=== PATIENT | female | born 1965 | race Caucasian/White ===

== ENCOUNTER → 2021-05-07 | Outpatient (CLI) | payer BC ==
[2021-05-07 13:31] VITALS: BP 138/80; PULSE 59; RESP 18; TEMP 97.6
--- NOTE | 2021-05-07 14:12 | P.GSHP ---
History of Present Illness H&P Date: 05/07/21 Chief Complaint: invasive ductal cancer of the right breast Desirae is a 55 year old white female seen in consultation for DR. Simmons regarding a biopsy-proven invasive ductal carcinoma in her right breast. She underwent a bilateral mammogram and ultrasound on April 092020. This revealed a lesion in the right breast at the 10 o'clock position. The lesion was 1.6 x 0.9 cm in size. An ultrasound core biopsy was performed on which revealed invasive ductal carcinoma. This is ER positive OR negative grade 2 HER-2 status pending. The patient did not note any lumps masses or nodules of concern in either breast. She is not complaining of any nipple discharge or skin changes. She has not had any prior surgery in her breast. She's not complaining of any trauma or infection in the breast. Caffeine: 5 cups coffee/day nicotine: none chocolate: occasional hormones: none BCP: 5 years, stopped many years ago; tubal Family History: mother: skin cancer Hormonal History: Menarche: 13 , breast fed: yes; first born at 24 menopause: 43 hormones: none Surgical History: hernia umbilical appy Medical History; none Social History: nicotine: none alcohol: occasional drugs: none - Constitutional Comment: hot flashes - EENT Eyes: denies blurred vision, denies pain Ears: deny: decreased hearing, tinnitus Ears, nose, mouth and throat: Denies headache, Denies sore throat - Breasts Breasts: bilateral: as per HPI - Cardiovascular Cardiovascular: Denies chest pain, Denies shortness of breath - Respiratory Respiratory: Denies cough, Denies 7 - Gastrointestinal Gastrointestinal: Reports constipation, Denies abdominal pain, Denies diarrhea, Denies nausea, Denies vomiting - Genitourinary (Female) Genitourinary: Denies dysuria, Denies hematuria - Menstruation Menstruation: Reports postmenopausal - Musculoskeletal Musculoskeletal: Denies myalgias - Integumentary Integumentary: Denies pruritus, Denies rash - Neurological Neurological: Denies numbness, Denies weakness - Psychiatric Psychiatric: Denies anxiety, Denies depression - Endocrine Endocrine: Denies fatigue, Denies weight change - Hematologic/Lymphatic Hematologic/Lymphatic: Reports as per HPI - Allergic/Immunologic Allergic/Immunologic: Reports as per HPI Past Medical History Past Medical History: GERD/Reflux History of Any Multi-Drug Resistant Organisms: None Reported Past Surgical History: Hernia Repair Additional Past Surgical History / Comment(s): right breast biopsy 04/19/21- pending pathology Past Anesthesia/Blood Transfusion Reactions: No Reported Reaction Past Psychological History: No Psychological Hx Reported Smoking Status: Never smoker Medications and Allergies Home Medications Medication Instructions Recorded Confirmed Type Omeprazole 40 mg PO DAILY 05/07/21 05/07/21 History Allergies Allergy/AdvReac Type Severity Reaction Status Date / Time No Known Allergies Allergy Verified 05/07/21 13:24 Surgical - Exam Vital Signs Temp Pulse Resp BP 97.6 F 59 L 18 138/80 05/07/21 13:24 05/07/21 13:24 05/07/21 13:24 05/07/21 13:24 BMI 32.5 - General no distress - Eyes normal ocular movement - Neck trachea midline - Respiratory normal respiratory effort, clear to auscultation - Cardiovascular Rhythm: regular Heart Sounds: normal: S1, S2 - Abdomen Abdomen: soft, non tender, no guarding, no rigid, no rebound - Integumentary normal turgor - Neurologic no disoriented, no combative - Musculoskeletal normal gait, normal posture - Psychiatric oriented to time, oriented to person, oriented to place, speech is normal, memory intact Breast Exam: BRA: 36C inspection: Bilateral grade 2 ptosis; fungal infection under each breast Palpation: Right breast: Ecchymosis related to recent core biopsy, fullness 9 o'clock position approximately 1.5 cm x 1 cm, no other dominant masses or nodules of concern, fungal infection under both breast Right axilla: No adenopathy of concern Left breast: Multi-positional exam fibrocystic changes no dominant masses or nodules of concern Left axilla: No adenopathy of concern Results Mammogram and ultrasound results reviewed Pathology results reviewed Assessment and Plan Assessment: Impression: 1. Right breast invasive ductal carcinoma grade 2 T1 N0 M0 ER positive OR- Her2? 2. Upper cystic breast changes Plan: 1. Presentation of case at tumor board 2. Probable needle localization lumpectomy, possible mastopexy incision, hyperplastic tissue transfer, sentinel node injection, sentinel node biopsy, right breast Cc: Dr. Simmons
== END ==
LOC: WWCWWP 12:52
PROVIDERS: ATTEND Surgery
DX: C50.911 Malignant neoplasm of unspecified site of right female breast (principal); N60.09 Solitary cyst of unspecified breast; K21.9 Gastro-esophageal reflux disease without esophagitis; Z17.0 Estrogen receptor positive status [ER+]; Z79.899 Other long term (current) drug therapy

== ENCOUNTER → 2021-06-04 | Outpatient (CLI) | payer BC ==
[2021-06-04 16:17] VITALS: BP 143/88; PULSE 57; RESP 17; TEMP 97.9
--- NOTE | 2021-06-04 16:52 | P.PN ---
Subjective Progress Note Date: 06/04/21 Principal diagnosis: invasive ductal right breast cancer History of Present Illness H&P Date: 05/07/21 Chief Complaint: invasive ductal cancer of the right breast Desirae is a 55 year old white female seen in consultation for DR. Johnston regarding a biopsy-proven invasive ductal carcinoma in her right breast. She underwent a bilateral mammogram and ultrasound on April 092020. This revealed a lesion in the right breast at the 10 o'clock position. The lesion was 1.6 x 0.9 cm in size. An ultrasound core biopsy was performed on which revealed invasive ductal carcinoma. This is ER positive AR negative grade 2 HER-2 status pending. The patient did not note any lumps masses or nodules of concern in either breast. She is not complaining of any nipple discharge or skin changes. She has not had any prior surgery in her breast. She's not complaining of any trauma or infection in the breast. Her case was presented at tumor board on 05-18-21. Caffeine: 5 cups coffee/day nicotine: none chocolate: occasional hormones: none BCP: 5 years, stopped many years ago; tubal Family History: mother: skin cancer Hormonal History: Menarche: 13 , breast fed: yes; first born at 24 menopause: 43 hormones: none Surgical History: hernia umbilical appy Medical History; none Social History: nicotine: none alcohol: occasional drugs: none - Constitutional Comment: hot flashes - EENT Eyes: denies blurred vision, denies pain Ears: deny: decreased hearing, tinnitus Ears, nose, mouth and throat: Denies headache, Denies sore throat - Breasts Breasts: bilateral: as per HPI - Cardiovascular Cardiovascular: Denies chest pain, Denies shortness of breath - Respiratory Respiratory: Denies cough - Gastrointestinal Gastrointestinal: Reports constipation, Denies abdominal pain, Denies diarrhea, Denies nausea, Denies vomiting - Genitourinary (Female) Genitourinary: Denies dysuria, Denies hematuria - Menstruation Menstruation: Reports postmenopausal - Musculoskeletal Musculoskeletal: Denies myalgias - Integumentary Integumentary: Denies pruritus, Denies rash - Neurological Neurological: Denies numbness, Denies weakness - Psychiatric Psychiatric: Denies anxiety, Denies depression - Endocrine Endocrine: Denies fatigue, Denies weight change - Hematologic/Lymphatic Hematologic/Lymphatic: Reports as per HPI - Allergic/Immunologic Allergic/Immunologic: Reports as per HPI Objective - Vital Signs Vital signs: Vital Signs Temp 97.9 F 06/04/21 16:14 Pulse 57 L 06/04/21 16:14 Resp 17 06/04/21 16:14 BP 143/88 06/04/21 16:14 Pulse Ox 100 06/04/21 16:14 Intake & Output 06/03/21 06/04/21 06/04/21 18:59 06:59 18:59 Weight 95.254 kg - Exam BMI: 31 - Constitutional General appearance: Present: cooperative - EENT Eyes: Present: EOMI ENT: Present: hearing grossly normal - Neck Neck: Present: normal ROM - Respiratory Respiratory: bilateral: CTA - Cardiovascular Rhythm: regular Heart sounds: normal: S1, S2 - Gastrointestinal General gastrointestinal: Present: soft - Integumentary Integumentary: Present: normal turgor - Musculoskeletal Musculoskeletal: Present: gait normal - Psychiatric Psychiatric: Present: A&O x's 3, appropriate affect, intact judgment & insight - Additional findings Additional findings: Breast Exam: BRA: 36C inspection: bilateral grade 2 ptosis palpation: Right breast: Multi-positional exam fibrocystic changes, increased fullness upper-outer quadrant area at approximately 9:00 Right axilla: No adenopathy of concern Left breast: Multi-positional exam fibrocystic changes no dominant masses or nodules of concern Left axilla: No adenopathy of concern Assessment and Plan Assessment: Impression: 1. invasive ductal right breast cancer; T1 N0 M0 ER positive AR negative HER-2 negative G2 Plan: Right breast needle localization lumpectomy, probable donut mastopexy, right axillary sentinel node injection, sentinel node biopsy, possible axillary node dissection Risk benefits of the procedures were discussed with the patient. Surgical procedure of lumpectomy versus mastectomy were discussed with the patient. The patient would prefer to have lumpectomy. Additionally she would prefer to have this done via mastopexy approach if possible. Her case is going to be presented at tumor board. Risk of lumpectomy include but are not limited to bleeding, infection, reaction to the anesthetic. If margins were to be positive then further resection would be needed. We have discussed sentinel node biopsy and possible axillary node dissection. She understands that if the radiotracer does not travel or may be necessary for her to have injection of blue dye. She understands risks include but are not limited to bleeding, infection, reaction to the anesthetic. Possible injury to the thoracodorsal and long thoracic nerve were discussed. She will most likely seal lymphedema specialist prior to the procedure. CC: Dr. Johnston
== END ==
LOC: WWCWWP 16:04
PROVIDERS: ATTEND Surgery
DX: C50.911 Malignant neoplasm of unspecified site of right female breast (principal); Z17.0 Estrogen receptor positive status [ER+]

== ENCOUNTER 2021-06-08 10:41 | Day surgery (SDC) | payer BC ==
[2021-06-04 12:56] VITALS: BMI 31.0
[~2021-06-08 10:41] MED LIST: DEXAMETHASONE SOD PHOSPHATE 4 MG/ML 1 ML VIAL IV ONE; HEPARIN SODIUM,PORCINE/PF 5,000 UNIT/0.5 ML SYRINGE SQ PRN; LACTATED RINGERS 1,000 ML IV SCH; ONDANSETRON 4 MG/2 ML VIAL IVP ONE; Pre Op ABX Message 1 EACH MISC MISCELLANE ONE
[2021-06-08] MEDS ORDERED: ALPRAZolam 0.25 MG TAB ONE (11:16)
[2021-06-08] MEDS ORDERED: ALPRAZolam 0.25 MG TAB PO ONE (11:18)
[2021-06-08 12:09] LABS: Basophils % (A) 0 %; Eosinophils % (A) 1 %; HCT 42.1 % (34.0-46.0); HGB 14.4 gm/dL (11.4-16.0); Lymphocytes # (A) 1.5 k/uL (1.0-4.8); Lymphocytes % (A) 29 %; MCH 30.5 pg (25.0-35.0); MCHC 34.3 g/dL (31.0-37.0); Mean Platelet Volume 7.4; Monocytes # (A) 0.4 k/uL (0-1.0); Monocytes % (A) 8 %; Neutrophils % (A) 59 %; Platelet Count 213 k/uL (150-450); RBC 4.74 m/uL (3.80-5.40); RDW 12.4 % (11.5-15.5)
[2021-06-08 12:21] LABS: Potassium 4.3 mmol/L (3.5-5.1)
[2021-06-08] MEDS ORDERED: LIDOCAINE 1%-EPI 1:100,000 20 ML VIAL SQ ONE (12:25)
[2021-06-08] MEDS ORDERED: LIDOCAINE 1% INJ 10MG/ML (20 ML MDV) SQ ONE (12:25)
--- NOTE | 2021-06-08 13:05 | NM ---
EXAMINATION TYPE: NM sentinel node injection DATE OF EXAM: 06/08/2021 COMPARISON: NONE HISTORY: Right-sided breast cancer TECHNIQUE AND FINDINGS: The procedure of sentinel lymph node injection was explained to the patient. The benefits, alternatives, and risks were discussed. An informed consent was then obtained. Overlying skin is cleaned with sterile alcohol. Following this, 495 uCi Tc99m Tilmanocept was inject ed in the upper outer aspect of the right nipple intradermally. The patient tolerated the procedure well without any immediate complication. The patient was kept in the radiology department for short stay after the procedure and then taken to surgery for surgical p rocedure what is presumed intraoperative gamma probe will be used for sentinel lymph node detection. IMPRESSION: Right breast radiotracer injection for sentinel node localization as above.
[2021-06-08] MEDS ORDERED: LACTATED RINGERS 1,000 ML IV ONE (13:13)
--- NOTE | 2021-06-08 13:31 | P.NAPBC ---
NAPBC Queries - NAPBC Queries Was patient's case review presented at [facility] tumor board? If no, comment.: Yes Was patient's pathology reviewed at [facility]? If no, comment.: Yes Was breast conservation surgery offered? If no, comment.: Yes Was sentinel node biopsy offered? If no, comment.: Yes Was diagnosis confirmed by percutaneous core biopsy? If no, comment.: Yes Is patient mastectomy patient?: No Was a preop referral to reconstructive surgeon offered?: No Clinical Stage: stage I [id number]
[2021-06-08] MEDS ORDERED: HYDROmorphone (PF) 1 MG/ML ONE (14:05)
[2021-06-08] MEDS ORDERED: MIDAZOLAM 2 MG/2 ML VIAL ONE (14:05)
[2021-06-08] MEDS ORDERED: SUCCINYLCHOLINE CHLORIDE VIAL 200 MG/10 ML VIAL IV ONE (14:05)
[2021-06-08] MEDS ORDERED: PROPOFOL 10 MG/ML 20 ML VIAL IV ONE (14:05)
[2021-06-08] MEDS ORDERED: LIDOCAINE 1% INJ 10MG/ML (20 ML MDV) ONE (14:05)
[2021-06-08] MEDS ORDERED: fentaNYL (PF) 50 MCG/ML 2 ML AMP ONE (14:05)
[2021-06-08] MEDS ORDERED: LIDOCAINE (PF) 10 MG/ML 2 ML VIAL SQ ONE (14:43)
--- NOTE | 2021-06-08 15:50 | USB ---
EXAM: Needle localization with wire placement. CLINICAL HISTORY: Newly diagnosed biopsy-proven cancer right breast TECHNIQUE: Needle localization with wire placement and surgical excision of area of concern in the right breast. COMPARISON: Prior outside ultrasound and mammogram April 19, 2021 FINDINGS: The procedure of needle localization with wire placement and than surgical excision was explained to the patient. Benefits, alternatives, and risks were discussed. An informed consent was then obtained. Lesion well identified and samples under ultrasound. Ultrasound guidance for localization is thus performed. Preprocedure ultrasound redemonstrates near 1.2 cm irregular hypoechoic lesion 10:00 position right breast. The overlying skin was prepped and draped in usual sterile fashion. Lidocaine is used as anesthetic into the skin and subcutaneous tissue. Lidocaine with epinephrine is used into the deeper tissue up to the level of area of concern. A 5 cm needle was used. It was placed via ultrasound guidance. At this point, wire was placed and the needle was withdrawn. The wire was fixed to patient's skin. Diagnostic post procedure mammogram for surgeon is performed as requested. Images were marked for surgeon. Wire appears satisfactory in position relative to targeted lesion. The patient tolerated the procedure well without any immediate complication. The patient was kept in the radiology department for short stay after the procedure and then taken to surgery for surgical excision. Targeted lesion and biopsy clip and wire are identified in specimen mammogram. The patient was kept in hospital for short stay after the procedure and then discharged home in stable condition. IMPRESSION: Successful, uncomplicated needle localization with wire placement and surgical excision of targeted lesion and biopsy clip in the right breast, full pathology results to follow. Pathology Results: Malignant A. RIGHT SENTINEL LYMPH NODE, EXCISION: Two sentinel lymph nodes, each negative for metastatic carcinoma. CK7 and FRANCIS stains, both performed with appropriate controls on blocks A1 and A2, each negative for metastatic carcinoma. B. RIGHT AXILLARY LYMPH NODE, EXCISION: One axillary lymph node positive for focus of micrometastatic carcinoma (see note). C. RIGHT BREAST, LUMPECTOMY: Invasive ductal carcinoma, Grade 2, with intermediate to high grade DCIS with focal comedonecrosis (see Surgical Pathology Cancer Case Summary and comment). Positive for lymphovascular invasion and focal perineural invasion. Anterior margin positive for invasive carcinoma, near area of anterior/inferior margin junction. All other margins negative for invasive carcinoma. All margins negative for DCIS. Closest margin to DCIS: DCIS measures 4 mm from closest anterior margin. D. BREAST, NEW POSTERIOR MARGIN, EXCISION: Benign breast tissue. New posterior margin negative for malignancy. E. RIGHT BREAST, NEW LATERAL MARGIN, EXCISION: Benign breast tissue. New lateral margin negative for malignancy. F. BREAST, NEW MEDIAL MARGIN, EXCISION: Benign breast tissue. New medial margin negative for malignancy. G. BREAST, NEW SUPERIOR MARGIN, EXCISION: Benign breast tissue, new superior margin negative for malignancy. H. BREAST, NEW INFERIOR MARGIN, EXCISION: Benign breast tissue. New inferior margin negative for malignancy. I. BREAST, NEW ANTERIOR MARGIN, EXCISION: 2 mm focus of invasive ductal carcinoma present, Grade 2 (see Surgical Pathology Cancer Case Summary and comment). Invasive carcinoma present 1 mm from closest new anterior margin. New anterior margin negative for carcinoma. Recommendation Surgical consult of the right breast. ANTWAND
--- NOTE | 2021-06-08 16:37 | P.OP ---
Date of Procedure: 06/08/21 Preoperative Diagnosis: right breast invasive ductal carcinoma, stage I Postoperative Diagnosis: Same Procedure(s) Performed: Right sentinel node biopsy, right deltoid mastopexy, right needle localization lumpectomy, right ankle plastic tissue transfer deformity 4 x 4 for 16 cm, inferior periareolar 4 x 2 through 12 cm, and superior 4 x 2 4 8 cm. Total 36 cm Anesthesia: RENEA Surgeon: Jasmyn Cortes Estimated Blood Loss (ml): 15 IV fluids (ml): 600 Pathology: other (Right sentinel node, right breast tissue) Condition: stable Disposition: same day Indications for Procedure: Biopsy-proven right breast invasive ductal carcinoma Operative Findings: Dense breast tissue Description of Procedure: Desirae is a 55-year-old white female diagnosed with a right breast invasive ductal carcinoma. After workup and evaluation she has decided on a lumpectomy with mastopexy incision of possible. Risks and benefits were discussed with the patient she understood and wished to proceed. The patient initially was seen in the radiology department. Localization of the cancer was performed. Additionally radioactive tracer was injected along the periareolar region. The patient was brought to the operative suite. Follow remains induction of anesthesia the neoprobe was used to interrogate the axilla. Radioactivity was noted in the axilla. The right breast and axilla were then prepped and draped in a sterile fashion. This area was approached initially. Using the neoprobe for guidance incision was made over the area of greatest radioactivity. A radioactive lymph node was identified this was removed using sharp dissection. The 10 second count was 9952. An additional palpable lymph node was identified in the removed as well. This was not radioactive. The 10 second background radioactive count was 14. After assured that hemostasis was attained the deep tissues were closed using Vicryl suture. The subcutaneous tissue was closed using 4-0 Vicryl suture followed by 4-0 Monocryl closing of the skin. The area of the breast was then approached. Markings had previously been drawn for a donut mastopexy incision. The anterior central tissue was de- epithelialized. The area of the breast parenchyma was then entered in the lateral aspect of the incision. Dissection was performed down to the localizing wire. Wide excision was performed. The cavity of excision was 4 cm x 4 cm. The specimen was removed and painted. It was then sent to radiology for confirmation that the area of concern was removed was obtained. Following this additional anterior lateral superior and inferior margins were obtained. Posterior margin was obtained as well and this was dissected onto the pectoralis muscle. Anteriorly dissection was directly underneath the skin. After assured that hemostasis was attained the inferior periareolar was mobilized. This was 4 cm x 3 cm in size. The superior polar was likewise mobilized which was 4 cm x 2 cm in size. The wound was irrigated and after assured that hemostasis was attained Surgicel and pyriform was placed. The areas of tissue were brought together to close the deformity defect. They were secured using 3-0 Vicryl suture. Following this a Bushnell closure of the circumareolar incision was performed using Monocryl suture. A 3-0 Vicryl sutures were placed for reinforcement of the mastopexy. Skin sutures of 4-0 nylon were placed. Steri-Strips were applied in the axilla. Patient tolerated the procedure in stable condition. All instrument and sponge counts were correct at the end of the case.
--- NOTE | 2021-06-08 16:39 | P.DS ---
Providers Attending physician: Jasmyn Cortes Primary care physician: Sandi Simmons MD Plan - Discharge Summary Discharge Rx Participant: Yes New Discharge Prescriptions: No Action Omeprazole 40 mg PO DAILY Discharge Medication List Omeprazole 40 mg PO DAILY 05/07/21 [History] Follow up Appointment(s)/Referral(s): Jasmyn Cortes MD [STAFF PHYSICIAN] - 06/16/21 1:00 pm Activity/Diet/Wound Care/Special Instructions: wear bra at all times unless in shower may shower after [address] or if taking narcotic pain medicine Discharge Disposition: HOME SELF-CARE
[2021-06-08 17:21] VITALS: TEMP 97
[2021-06-08] MEDS: HYDROmorphone 0.5 MG/0.5 ML SYRINGE IVP PRN ×2 (17:22→17:29)
[2021-06-08 18:16] VITALS: BP 130/86; PULSE 67; RESP 20
== END 2021-06-08 18:30 | disposition home or self-care (01) ==
LOC: OR 10:41
PROVIDERS: ATTEND Surgery
DX: C50.411 Malignant neoplasm of upper-outer quadrant of right female breast (principal)
CPT/HCPCS: 19302; 88305; 80051; 85025; 88342; 88307; 88341; 77065; 76098; 19285; 38792; C1819; A9520; J2250; J0330; J2001 ×2; J1100; J0690; J2405; J3010; J1170 ×2; J2704; J1644

== ENCOUNTER → 2021-06-16 | Outpatient (CLI) | payer BC ==
[2021-06-16 15:06] VITALS: BP 129/85; PULSE 70; RESP 18; TEMP 97.8
--- NOTE | 2021-06-16 15:25 | P.PN ---
Progress Note - Text Progress Note Date: 06/16/21 Desirae is a 55-year-old white female status post right breast lumpectomy and sentinel node biopsy on 3121. Postoperatively she has done well. Pathology revealed a 2.5 x 2.4 cm invasive ductal carcinoma with margins negative. One lymph node had micrometastatic disease. Postoperatively she has done well. lungs: clear heart: RRR incision: Pain and dry Impression: stage I right breast invasive ductal cancer Plan: Follow-up here in 1 week for suture removal Follow-up radiation oncology Follow-up medical oncology CC: Dr. Johnston
== END ==
LOC: WWCWWP 14:54
PROVIDERS: ATTEND Surgery
DX: C50.911 Malignant neoplasm of unspecified site of right female breast (principal); Z98.890 Other specified postprocedural states

== ENCOUNTER → 2021-07-02 | Outpatient (CLI) | payer BC ==
[2021-07-02 08:31] VITALS: BP 142/84; PULSE 53; RESP 18; TEMP 97.9
--- NOTE | 2021-07-02 08:51 | P.PN ---
Progress Note - Text Progress Note Date: 07/02/21 Desirae is a 55-year-old white female status post right breast lumpectomy and sentinel node biopsy on 3121. Postoperatively she has done well. Pathology revealed a 2.5 x 2.4 cm invasive ductal carcinoma with margins negative. One lymph node had micrometastatic disease. Postoperatively she has done well. She has seen medical and radiation oncology. Secondary to the micrometastatic disease in the lymph node she has been recommended to undergo chemotherapy. Additionally she will undergo radiation therapy. lungs: clear heart: RRR incision: Axilla posterior portion approximately 5 mm opening it appears that she had a stitch abscess at this site, periareolar incision clean and dry Impression: stage I right breast invasive ductal cancer Patient is going to have chemotherapy, following up August 13 with medical oncology for 4 treatments three weeks apart patient will have radiation therapy Plan: Follow-up here in 2 week for suture removal Follow-up radiation oncology Follow-up medical oncology CC: Dr. Johnston
== END ==
LOC: WWCWWP 08:10
PROVIDERS: ATTEND Surgery
DX: C50.811 Malignant neoplasm of overlapping sites of right female breast (principal); Z98.890 Other specified postprocedural states

== ENCOUNTER 2021-07-23 09:10 | Day surgery (SDC) | payer BC ==
[2021-07-21 10:41] VITALS: BMI 34.1
--- NOTE | 2021-07-23 06:31 | P.GSHP ---
History of Present Illness H&P Date: 07/23/21 CHIEF COMPLAINT: Breast cancer HISTORY OF PRESENT ILLNESS: The patient is a 37-year-old female diagnosed with breast cancer. She needs a Mediport placement for chemotherapy. PAST MEDICAL HISTORY: See list and reviewed PAST SURGICAL HISTORY: See list and reviewed CURRENT MEDICATIONS: See list and reviewed ALLERGIES: See list and reviewed SOCIAL HISTORY: See list and reviewed FAMILY HISTORY: See list and reviewed REVIEW OF ORGAN SYSTEMS: CONSTITUTIONAL: No fevers or chills RESPIRATORY: No pneumonia. No dyspnea on exertion. CARDIOVASCULAR: No recent chest pain. No history of blood clots PHYSICAL EXAMINATION: Vital signs: Stable GENERAL: Well developed and in no acute distress. Pleasant. HEENT: No sclera icterus. Extraocular movements grossly intact. Moist buccal mucosa. Head is atraumatic, normocephalic. Hears conversational speech. No nasal drainage. NECK: Supple without lymphadenopathy. No JV distention. CHEST: Non-labored respirations and equal bilateral excursions. CARDIOVASCULAR: Regular rate and rhythm. Palpable 2+ radial pulses. ABDOMEN: Nontender. MUSCULOSKELETAL: No clubbing, cyanosis or edema. NEUROLOGIC: No focal or lateralizing signs. PSYCH: Appropriate affect. Alert and oriented to person, place and time. ASSESSMENT: 1. Breast cancer 2. Need for chemotherapeutic access. PLAN: 1. Port-A-Cath placement for chemotherapy access Past Medical History Past Medical History: Cancer, GERD/Reflux Additional Past Medical History / Comment(s): NEW DX RT BREAST CANCER History of Any Multi-Drug Resistant Organisms: None Reported Past Surgical History: Breast Surgery, Hernia Repair Additional Past Surgical History / Comment(s): right breast biopsy, rt breast lumpectomy Past Anesthesia/Blood Transfusion Reactions: No Reported Reaction Smoking Status: Never smoker - Past Family History Mother Family Medical History: No Reported History Medications and Allergies Home Medications Medication Instructions Recorded Confirmed Type Omeprazole 40 mg PO DAILY 05/07/21 07/21/21 History Allergies Allergy/AdvReac Type Severity Reaction Status Date / Time No Known Allergies Allergy Verified 07/21/21 10:36
[~2021-07-23 09:10] MED LIST changes: +ACETAMINOPHEN TAB 500 MG TAB PO PRN; +GABAPENTIN 300 MG CAP PO PRN; -HEPARIN SODIUM,PORCINE/PF 5,000 UNIT/0.5 ML SYRINGE SQ PRN; +HYDROmorphone 0.5 MG/0.5 ML SYRINGE IVP PRN; +MIDAZOLAM 2 MG/2 ML VIAL IV PRN; +SCOPOLAMINE 1 MG/72 HR PATCH TRANSDERM ONE
[2021-07-23] MEDS ORDERED: MIDAZOLAM 2 MG/2 ML VIAL ONE (10:09)
[2021-07-23] MEDS ORDERED: fentaNYL (PF) 50 MCG/ML 2 ML AMP ONE (10:09)
[2021-07-23] MEDS ORDERED: LIDOCAINE 1% INJ 10MG/ML (20 ML MDV) ONE (10:09)
[2021-07-23] MEDS ORDERED: PROPOFOL 10 MG/ML 20 ML VIAL IV ONE (10:09)
[2021-07-23] MEDS ORDERED: BUPIVACAINE (PF) 0.25% 30 ML VIAL SQ ONE ×2 (10:42→10:48)
[2021-07-23] MEDS ORDERED: SODIUM CHLORIDE 0.9% 500 ML 500 ML with HEPARIN SODIUM,PORCINE 5,000 UNIT IV ONE ×2 (10:45)
[2021-07-23 11:19] VITALS: TEMP 97.5
--- NOTE | 2021-07-23 11:29 | P.OP ---
Date of Procedure: 07/23/21 Description of Procedure: SURGEON: MARCELLE CRUZ MD FLAME ANNEALING MACHINE SETTER: None. PREOPERATIVE DIAGNOSES: 1. Breast cancer, right 2. Need for chemotherapeutic access. 3. Obesity due to excess calories, BMI 33.7 4. Gastroesophageal reflux disease POSTOPERATIVE DIAGNOSES: 1. Breast cancer, right 2. Need for chemotherapeutic access. 3. Obesity due to excess calories, BMI 33.7 4. Gastroesophageal reflux disease PROCEDURES PERFORMED: 1. Ultrasound guided central venous access of the right internal jugular venous vein. 2. Fluoroscopic guidance for central venous access right internal jugular vein less 1 seconds. 3. Placement of right internal jugular power port 6 [place] by [employer] X[employer] Plus Port ANESTHESIA: IV sedation with local. ESTIMATED BLOOD LOSS: 5 mL. SPECIMENS REMOVED: None. COMPLICATIONS: None. FINDINGS: 1. No thrombus encountered along the right carotid artery or internal jugular vein. 2. Access of the right internal jugular vein under ultrasound guidance. 3. Fluoroscopy of 1 seconds. INDICATIONS: The patient is a 55-year-old female recently diagnosed with breast cancer. She presents for chemotherapeutic access. Benefits and risks of surgical intervention were described including bleeding, infection, mechanical problems with his port. Informed consent was obtained. DESCRIPTION OR PROCEDURE: Patient was brought into the operating room, laid in supine position. After adequate IV sedation, the chest and right neck were prepped and draped in a standard sterile fashion including the shoulder with ChloraPrep. Timeout protocol was confirmed with the surgical team regarding the patient's name, procedure to be performed including preoperative medications for which she received IV antibiotics. Bilateral SCDs were placed. An ultrasound was used to capture views of the right internal jugular vein including right carotid artery, which was patent and without thrombus along its course. The right IJ was then localized using anesthetic for the skin. A 16 [place] needle was used to access the IJ. A guidewire was advanced into the IJ with dark nonpulsatile venous blood. Two fingerbreadths distal to the clavicle, on the lateral third, a transverse 2.5 cm incision was deepened into the skin after localizing the skin. A pocket was created for the port. The port on the back table was flushed with heparinized saline and then attached to the catheter tubing. An adapter was fastened to the actual port site over the tubing. The port easily had fit snug into the pocket. A subcutaneous tunneler was placed along the open end of the tubing and brought out through the separate stab incision. Fluoroscopic guidance confirmed no kinking along the tubing and the port site. Next, the J-wire was exchanged for a catheter sheath for which the tubing was cut to 24 cm and then advanced through the catheter sheath. The Peel-away sheath was then removed and the tubing was secured at the junction of the superior vena cava as well as the right atrium. The tubing was found to be crossed however functional. This was all done under fluoroscopic guidance under 1 seconds. Easy pullback as well as return and aspiration was obtained of the port site. The skin incision was closed using layers using 3-0 Vicryl for the subcu followed by 4-0 Monocryl in a running subcuticular fashion. At the stick site this was also reapproximated using 4-0 Monocryl. The incisions were covered with Optifoam, The skin was cleansed and Exofin liquid glue was applied. Optifoam dressing was placed over the port site. A total of 20 mL of local anesthetic was placed. At the end of the procedure, needle, sponge, and instrument count was verified correct by neurosurgical nurse. Heparin lock of 5 mL was placed. The patient was awoken and pain free and taken to the second stage postanesthesia care unit. The patient tolerated the procedure well. Plan - Discharge Summary Discharge Rx Participant: Yes New Discharge Prescriptions: New Acetaminophen Tab [Tylenol Tab] 1,000 mg PO Q6HR PRN #30 tablet PRN Reason: Pain Acetaminophen Tab [Tylenol Tab] 1,000 mg PO Q6HR PRN #30 tablet PRN Reason: Pain Continue Omeprazole 40 mg PO DAILY Discharge Medication List Omeprazole 40 mg PO DAILY 05/07/21 [History] Acetaminophen Tab [Tylenol Tab] 1,000 mg PO Q6HR PRN #30 tablet 07/23/21 [Rx] Acetaminophen Tab [Tylenol Tab] 1,000 mg PO Q6HR PRN #30 tablet 07/23/21 [Rx] Follow up Appointment(s)/Referral(s): Marcelle Cruz MD [STAFF PHYSICIAN] - As Needed Patient Instructions/Handouts: *[facility] - Managing Your Pain After Surgery Without Opioids, Implanted Venous Access Port (GEN), How to Care for Your Implanted Venous Access Port (DC) Activity/Diet/Wound Care/Special Instructions: Remove dressing on July 26. August shower. No bathtub soaks for 2 weeks, August 06 No wide motions of the right arm to prevent dislodge of your port for 3 weeks. EXPECT BRUISING AND SLEEP WITH 2 TO 3 PILLOWS. BRUISING RESOLVES IN 2 TO 3 WEEKS. Take Tylenol, Aleve or ibuprofen for pain as needed Discharge Disposition: HOME SELF-CARE
[2021-07-23 11:37] VITALS: RESP 16
--- NOTE | 2021-07-23 11:38 | FL ---
EXAMINATION TYPE: FL guided central line placemt DATE OF EXAM: 07/23/2021 CLINICAL HISTORY: Newly diagnosed right breast cancer. TECHNIQUE: Fluoroscopy. COMPARISON: None. FINDINGS: Fluoroscopic guidance was provided during right internal jugular Mediport catheter inserti on procedure performed by Dr. Walden. A total of 1 second of fluoroscopic time was utilized durin g the procedure and 1 spot intraoperative image is acquired. Single image shows right internal jugula r Mediport catheter with tip terminating near cavoatrial junction. IMPRESSION: As Above.
--- NOTE | 2021-07-23 11:52 | XR ---
EXAMINATION TYPE: XR chest 1V portable DATE OF EXAM: 07/23/2021 COMPARISON: NONE HISTORY: Post Port-A-Cath insertion. Right-sided breast cancer. TECHNIQUE: Single frontal view of the chest is obtained. FINDINGS: There is left basilar horizontal opacity favoring atelectasis. The cardiac silhouette siz e is enlarged. There is right internal jugular Mediport catheter terminating at cavoatrial junction . No pneumothorax seen. The osseous structures are intact. Surgical clips in the overlying right lauren st are noted. IMPRESSION: As above.
[2021-07-23 12:26] VITALS: BP 138/84; PULSE 60
== END 2021-07-23 12:44 | disposition home or self-care (01) ==
LOC: OR 09:10
PROVIDERS: ATTEND Surgery Plastic and Reconstructive Surgery
DX: C50.911 Malignant neoplasm of unspecified site of right female breast (principal); K21.9 Gastro-esophageal reflux disease without esophagitis; Z79.899 Other long term (current) drug therapy; E66.01 Morbid (severe) obesity due to excess calories; Z68.33 Body mass index [BMI] 33.0-33.9, adult
CPT/HCPCS: 36556; 77001; 71045; C1788; J2250; J1644; J1100; J0690; J2405; J2001; J3010; J1642; J2704

== ENCOUNTER → 2022-02-11 | Outpatient (CLI) | payer BC ==
[2022-02-11 15:23] VITALS: BP 131/83; PULSE 77; RESP 16; TEMP 97.9
--- NOTE | 2022-02-11 15:34 | P.PN ---
Subjective Progress Note Date: 02/11/22 Principal diagnosis: stage IIIA invasive ductal cancer right breast Desirae is a 56 year old white female seen in consultation for DR. Johnston regarding a biopsy-proven invasive ductal carcinoma in her right breast. She underwent a bilateral mammogram and ultrasound on April 092020. This revealed a lesion in the right breast at the 10 o'clock position. The lesion was 1.6 x 0.9 cm in size. An ultrasound core biopsy was performed on which revealed invasive ductal carcinoma. This is ER positive MI negative grade 2 HER-2 negative. The patient did not note any lumps masses or nodules of concern in either breast. She underwent a lumpectomy and SNB on 06-08-21 status post chemotherapy status post radiation therapy completed on 12-28-21 She will start AI soon She is not complaining of any new lumps masses or nodules of concern in either breast. Caffeine: 5 cups coffee/day nicotine: none chocolate: occasional hormones: none BCP: 5 years, stopped many years ago; tubal Family History: mother: skin cancer Hormonal History: Menarche: 13 , breast fed: yes; first born at 24 menopause: 43 hormones: none Surgical History: hernia umbilical appy Medical History; none Social History: nicotine: none alcohol: occasional drugs: none - Constitutional Comment: hot flashes - EENT Eyes: denies blurred vision, denies pain Ears: deny: decreased hearing, tinnitus Ears, nose, mouth and throat: Denies headache, Denies sore throat - Breasts Breasts: bilateral: as per HPI - Cardiovascular Cardiovascular: Denies chest pain, Denies shortness of breath - Respiratory Respiratory: Denies cough - Gastrointestinal Gastrointestinal: Reports constipation, Denies abdominal pain, Denies diarrhea, Denies nausea, Denies vomiting - Genitourinary (Female) Genitourinary: Denies dysuria, Denies hematuria - Menstruation Menstruation: Reports postmenopausal - Musculoskeletal Musculoskeletal: Denies myalgias - Integumentary Integumentary: Denies pruritus, Denies rash - Neurological Neurological: Denies numbness, Denies weakness - Psychiatric Psychiatric: Denies anxiety, Denies depression - Endocrine Endocrine: Denies fatigue, Denies weight change - Hematologic/Lymphatic Hematologic/Lymphatic: Reports as per HPI - Allergic/Immunologic Allergic/Immunologic: Reports as per HPI Objective - Vital Signs Vital signs: Vital Signs Temp 97.9 F 02/11/22 15:21 Pulse 77 02/11/22 15:21 Resp 16 02/11/22 15:21 BP 131/83 02/11/22 15:21 Pulse Ox 99 02/11/22 15:21 FiO2 Intake & Output 02/10/22 02/11/22 02/11/22 18:59 06:59 18:59 Weight 102.058 kg - Exam BMI: 33.2 - Constitutional General appearance: Present: cooperative - EENT Eyes: Present: EOMI - Neck Neck: Present: normal ROM - Respiratory Respiratory: bilateral: CTA - Cardiovascular Rhythm: regular Heart sounds: normal: S1, S2 - Integumentary Integumentary: Present: normal turgor - Musculoskeletal Musculoskeletal: Present: gait normal - Psychiatric Psychiatric: Present: A&O x's 3, appropriate affect, intact judgment & insight - Additional findings Additional findings: Breast Exam: BRA: 36C Inspection: Well-healed scar right breast from prior surgery, bilateral grade 2 ptosis Palpation: Right breast: Multi-positional exam post surgical and radiation changes no evidence of any recurrent cancer Right axilla: No adenopathy of concern Left breast: Multi-positional exam no dominant masses or nodules of concern Left axilla: No adenopathy of concern Assessment and Plan Assessment: Impression/Plan: Patient is going to start an aromatase inhibitor in the near future Patient is going to have bilateral mammogram in 4 months Patient will follow up sooner any questions or concerns Continue to follow with medical and radiation oncology Follow-up. 4 months after mammogram CC: Dr. Johnston
== END | disposition home or self-care (01) ==
LOC: WWCWWP 15:03
PROVIDERS: ATTEND Surgery
DX: Z53.9 Procedure and treatment not carried out, unspecified reason (principal)

== ENCOUNTER 2022-02-18 06:18 | Day surgery (SDC) | payer BC ==
[2022-02-14 15:59] VITALS: BMI 32.5
--- NOTE | 2022-02-18 05:23 | P.GSHP ---
History of Present Illness H&P Date: 02/18/22 CHIEF COMPLAINT: Breast cancer. HISTORY OF PRESENT ILLNESS: The patient is a 56-year-old female diagnosed with invasive breast cancer. She had a Mediport placement. She presents for Port-A-Cath removal upon completion of her chemotherapy. PAST MEDICAL HISTORY: Breast cancer. PAST SURGICAL HISTORY: Breast biopsy. CURRENT MEDICATIONS: See list. ALLERGIES: See list. SOCIAL HISTORY: No active tobacco or alcohol use. FAMILY HISTORY: Noncontributory. REVIEW OF ORGAN SYSTEMS: CONSTITUTIONAL: Denies any fever or chills. Denies recent weight loss or weight gain. HEENT: Denies any trouble with vision, hearing or nosebleeds. No difficulty swallowing. BREASTS: Please see above. PHYSICAL EXAMINATION: Vital signs: Stable GENERAL: Well developed female and in no acute distress. Pleasant. HEENT: No sclera icterus. Extraocular movements grossly intact. Moist buccal mucosa. Head is atraumatic, normocephalic. Hears conversational speech. No nasal drainage. NECK: Supple without lymphadenopathy. No JV distention. CHEST: Non-labored respirations and equal bilateral excursions. CARDIOVASCULAR: Regular rate and rhythm. Palpable 2+ radial pulses. ABDOMEN: Nontender. MUSCULOSKELETAL: No clubbing, cyanosis or edema. NEUROLOGIC: No focal or lateralizing signs. PSYCH: Appropriate affect. Alert and oriented to person, place and time. ASSESSMENT: 1. Breast cancer. 2. Need for chemotherapeutic access. PLAN: 1. Will proceed with Port-A-Cath removal. Past Medical History Past Medical History: Cancer, GERD/Reflux Additional Past Medical History / Comment(s): RT BREAST CANCER-Apr 2021-last dose chemo /radiation last dose History of Any Multi-Drug Resistant Organisms: None Reported Past Surgical History: Breast Surgery, Hernia Repair Additional Past Surgical History / Comment(s): right breast biopsy, rt breast lumpectomy Past Anesthesia/Blood Transfusion Reactions: No Reported Reaction Smoking Status: Never smoker - Past Family History Mother Family Medical History: No Reported History Medications and Allergies Home Medications Medication Instructions Recorded Confirmed Type Omeprazole 40 mg PO QAM 05/07/21 02/14/22 History Acetaminophen Tab [Tylenol Tab] 1,000 mg PO Q6HR PRN #30 tablet 07/23/21 02/14/22 Rx Anastrozole [Arimidex] 1 mg PO DAILY 02/14/22 02/14/22 History Allergies Allergy/AdvReac Type Severity Reaction Status Date / Time No Known Allergies Allergy Verified 02/14/22 15:53
[~2022-02-18 06:18] MED LIST changes: -GABAPENTIN 300 MG CAP PO PRN; -HYDROmorphone 0.5 MG/0.5 ML SYRINGE IVP PRN; +MELOXICAM 7.5 MG TAB PO PRN; -Pre Op ABX Message 1 EACH MISC MISCELLANE ONE
[2022-02-18] MEDS ORDERED: HYDROmorphone 0.5 MG/0.5 ML SYRINGE IVP PRN (07:00)
[2022-02-18 07:06] VITALS: RESP 18; TEMP 97.5
[2022-02-18] MEDS ORDERED: KETAMINE 10 MG/ML 20 ML VIAL ONE (08:22)
[2022-02-18] MEDS ORDERED: fentaNYL (PF) 50 MCG/ML 2 ML AMP ONE (08:22)
[2022-02-18] MEDS ORDERED: PROPOFOL 10 MG/ML 20 ML VIAL IV ONE (08:22)
[2022-02-18] MEDS ORDERED: MIDAZOLAM 2 MG/2 ML VIAL ONE (08:22)
[2022-02-18] MEDS ORDERED: LIDOCAINE 1%-EPI 1:100,000 20 ML VIAL SQ ONE ×2 (08:41→08:45)
[2022-02-18 09:14] VITALS: BP 133/84; PULSE 73
--- NOTE | 2022-02-18 09:16 | P.OP ---
Date of Procedure: 02/18/22 Description of Procedure: SURGEON: MARCELLE CRUZ MD CARDIOGRAPH OPERATOR: None. PREOPERATIVE DIAGNOSIS: 1. Right breast cancer 2. Chemotherapeutic venous access. 3. Status post chemoradiation 4. Obesity due to excess calories, BMI 33.1 POSTOPERATIVE DIAGNOSIS: 1. Right breast cancer 2. Chemotherapeutic venous access. 3. Status post chemoradiation 4. Obesity due to excess calories, BMI 33.1 OPERATION: Removal of right internal jugular vein Port-A-Cath. ANESTHESIA: MAC with local ESTIMATED BLOOD LOSS: 5 mL SPECIMENS REMOVED: Port-A-Cath COMPLICATIONS: None. FINDINGS: 1. Unremarkable Port-a-cath extraction. INDICATIONS: The patient is a 56-year-old female who completed chemotherapy for breast cancer. She now has elected for removal. Benefits and risks were described. Informed consent was obtained. DESCRIPTION OF PROCEDURE: Patient was brought to the operating room, laid in supine position. After IV sedation the chest wall on the left side was prepped and draped in standard sterile fashion. Prior to incision, a timeout protocol was confirmed with surgical team regarding the patient's name including procedures to be performed. Antibiotics were given including placement of sequential compression devices for DVT prophylaxis. Attention was brought to the area of the port site, whereby local was infiltrated into the skin for a field block. A #15 blade was used to incise along the previous cicatrix. Electro- Bovie cautery was used to control for hemostasis. Adhesions were lysed around the Mediport. The port was extracted without sequelae. Pressure for 2 minutes was placed along the internal jugular vein. Hemostasis was checked along the pocket of the Port-A-Cath site. The wound was closed in layers using 3-0 Vicryl for the deep subcutaneous tissues followed by 4-0 Monocryl in a running subcuticular fashion. Dermabond was applied to the skin. Once dried a 4 x 4 Optifoam was applied. At the end of the procedure needle, sponge and instrument counts were verified correct by the certified surgical technologist. The patient had tolerated the procedure well and was taken to postanesthesia care in stable condition. Plan - Discharge Summary Discharge Rx Participant: No New Discharge Prescriptions: Continue Anastrozole [Arimidex] 1 mg PO DAILY Omeprazole 40 mg PO QAM Acetaminophen Tab [Tylenol] 1,000 mg PO Q6HR PRN #30 tablet PRN Reason: Pain Discharge Medication List Omeprazole 40 mg PO QAM 05/07/21 [History] Acetaminophen Tab [Tylenol] 1,000 mg PO Q6HR PRN #30 tablet 07/23/21 [Rx] Anastrozole [Arimidex] 1 mg PO DAILY 02/14/22 [History] Follow up Appointment(s)/Referral(s): Marcelle Cruz MD [STAFF PHYSICIAN] - As Needed Patient Instructions/Handouts: Removal of a Central Line, PICC, or Midline Catheter (ED) Activity/Diet/Wound Care/Special Instructions: May shower. No bathtub soaks for 2 weeks until Mar 04. Remove dressing Feb 21. Sleep on elevated pillows at least 3 for 3 days. Bruising is normal and subsides in 2 weeks. Take Tylenol or Motrin regularly for 24 hrs for pain, if needed. Use ice along incision to decrease swelling. Discharge Disposition: HOME SELF-CARE
== END 2022-02-18 09:30 | disposition home or self-care (01) ==
LOC: OR 06:18
PROVIDERS: ATTEND Surgery Plastic and Reconstructive Surgery
DX: C50.911 Malignant neoplasm of unspecified site of right female breast (principal); E66.09 Other obesity due to excess calories; K21.9 Gastro-esophageal reflux disease without esophagitis; Z68.33 Body mass index [BMI] 33.0-33.9, adult; Z85.3 Personal history of malignant neoplasm of breast; Z98.890 Other specified postprocedural states; Z79.811 Long term (current) use of aromatase inhibitors
CPT/HCPCS: 36590; J2250; J1100; J0690; J2405; J3010; J2704